=== PATIENT | female | born 1980 | race Hispanic/Latino ===

== ENCOUNTER 2023-04-11 08:04 | Outpatient (CLI) | payer OTHER | END 2023-04-11 08:05 | disposition home or self-care (01) | LOC: CT 08:04 | PROVIDERS: ATTEND Internal Medicine | DX: C50.411 Malignant neoplasm of upper-outer quadrant of right female breast (principal); M43.8X4 Other specified deforming dorsopathies, thoracic region | CPT/HCPCS: 71260; 74177; 78306; A9503 ==

== ENCOUNTER 2023-11-27 09:47 | Day surgery (SDC) | payer BC, SELFPAY ==
[2023-11-27] MEDS ORDERED: Midazolam HCl 2 mg/2 ml Vial ONE (10:04)
[2023-11-27] MEDS ORDERED: fentaNYL 50 mcg/mL 1 mL Vial ONE ×2 (10:04→10:44)
[2023-11-27] MEDS ORDERED: Sodium Bicarbonate 2.5 MEQ/5 ML SDV ONE (10:05)
[2023-11-27] MEDS ORDERED: Lidocaine 1% PF 5 ML VIAL ONE (10:05)
[2023-11-27 10:17] LABS: #Basophils 0.08 10x3/uL (0.0-0.2); #Eosinphils Less than 0.03 10x3/uL (0.0-0.7); %Basophils 1.7 % (0.0-1.0); %Eosinophils 0.4 % (0.0-10.0); %Lymphocytes 24.9 % (21.0-51.0); %Monocytes 3.8 % (0.0-10.0); Hematocrit 36.3 % (36.0-47.0); Hemoglobin 12.4 g/dL (12.0-16.0); Mean Corpuscular HGB CONC 34.2 g/dL (32.0-36.0); Mean Corpuscular Hemoglobin 33.2 pg (27.0-31.0); Mean Corpuscular Volume 97.1 fL (78.0-98.0); Mean Platelet Volume 9.6 fL (7.4-10.4); Platelet Count 289 10x3/uL (130-400); RBC Distribution Width 14.6 % (11.5-14.5); Red Blood Cell (RBC) Count 3.74 mill/uL (4.20-5.40)
[2023-11-27 10:25] LABS: Prothrombin Time 13.3 sec (12.0-14.7)
[2023-11-27 10:26] LABS: PTT 28.5 sec (22.9-36.1)
[2023-11-27 10:40] VITALS: BP 129/85; TEMP 97.9
[2023-11-27 10:45] LABS: BHCG - Serum Negative (NEGATIVE); Pregs Control Background? CLEAR/WHITE (CLR/WHITE); Pregs Control Bar Appear? YES (CONTROL BAR)
== END 2023-11-27 14:50 | disposition home or self-care (01) ==
LOC: CT 09:47
PROVIDERS: ATTEND Internal Medicine
PROC: 0P9 Upper Bones, Drainage (ICD-10-PCS; principal; 2023-11-27)
DX: C50.411 Malignant neoplasm of upper-outer quadrant of right female breast (principal); R16.0 Hepatomegaly, not elsewhere classified; K76.0 Fatty (change of) liver, not elsewhere classified; C79.51 Secondary malignant neoplasm of bone; Z17.0 Estrogen receptor positive status [ER+]
CPT/HCPCS: 20225; 36415; 77012; 84703; 85025; 85610; 85730; J2250; J3010

== ENCOUNTER 2024-05-21 10:25 | Outpatient (CLI) | payer BC | END 2024-05-21 10:26 | disposition home or self-care (01) | LOC: ULT 10:25 | PROVIDERS: ATTEND Nurse Practitioner Gerontology | DX: R94.5 Abnormal results of liver function studies (principal); C50.411 Malignant neoplasm of upper-outer quadrant of right female breast; C79.51 Secondary malignant neoplasm of bone; K80.20 Calculus of gallbladder without cholecystitis without obstruction; K76.89 Other specified diseases of liver | CPT/HCPCS: 76705 ==

== ENCOUNTER 2024-06-01 08:27 | Outpatient (CLI) | payer BC | END 2024-06-01 08:28 | disposition home or self-care (01) | LOC: CT 08:27 | PROVIDERS: ATTEND Internal Medicine | DX: C50.411 Malignant neoplasm of upper-outer quadrant of right female breast (principal); C79.51 Secondary malignant neoplasm of bone; R94.5 Abnormal results of liver function studies; K76.0 Fatty (change of) liver, not elsewhere classified; K80.20 Calculus of gallbladder without cholecystitis without obstruction | CPT/HCPCS: 71260; 74177 ==

== ENCOUNTER 2025-02-12 12:47 | Outpatient (CLI) | payer MEDICAID | END 2025-02-12 12:48 | disposition home or self-care (01) | LOC: MRI 12:47 | PROVIDERS: ATTEND Internal Medicine | DX: Z51.11 Encounter for antineoplastic chemotherapy (principal); C50.411 Malignant neoplasm of upper-outer quadrant of right female breast; C79.51 Secondary malignant neoplasm of bone; R94.5 Abnormal results of liver function studies | CPT/HCPCS: 70553; 76376 ==

== ENCOUNTER 2025-04-13 09:22 | Outpatient (CLI) | payer MEDICAID ==
[2025-04-13] MEDS ORDERED: Iopamidol 370 76% 100 ML VIAL ONE (10:13)
== END 2025-04-13 09:23 | disposition home or self-care (01) ==
LOC: NM 09:22
PROVIDERS: ATTEND Internal Medicine
DX: C50.411 Malignant neoplasm of upper-outer quadrant of right female breast (principal); C79.51 Secondary malignant neoplasm of bone; R94.5 Abnormal results of liver function studies; G93.89 Other specified disorders of brain; C78.7 Secondary malignant neoplasm of liver and intrahepatic bile duct; K76.9 Liver disease, unspecified; J84.10 Pulmonary fibrosis, unspecified; K42.9 Umbilical hernia without obstruction or gangrene; M89.9 Disorder of bone, unspecified; S12.400A Unspecified displaced fracture of fifth cervical vertebra, initial encounter for closed fracture; S12.500A Unspecified displaced fracture of sixth cervical vertebra, initial encounter for closed fracture; S22.019A Unspecified fracture of first thoracic vertebra, initial encounter for closed fracture; S22.049A Unspecified fracture of fourth thoracic vertebra, initial encounter for closed fracture; S22.059A Unspecified fracture of T5-T6 vertebra, initial encounter for closed fracture; Z90.13 Acquired absence of bilateral breasts and nipples; Z95.828 Presence of other vascular implants and grafts
CPT/HCPCS: 70491; 71260; 74177; 78306; A9503; Q9967